=== PATIENT | female | born 1985 | race Hispanic/Latino ===

== ENCOUNTER 2021-07-28 11:08 | Emergency (ER) | payer OTHER ==
[~2021-07-28] VITALS: Ht 149.9 cm; Wt 83.9 kg
== END 2021-07-28 11:47 | disposition home or self-care (01) ==
LOC: ER 11:41
DX: O26.892 Other specified pregnancy related conditions, second trimester (principal); J02.9 Acute pharyngitis, unspecified; R05.9 Cough, unspecified; R09.89 Other specified symptoms and signs involving the circulatory and respiratory systems
CPT/HCPCS: 99283

== ENCOUNTER 2025-05-21 18:10 | Emergency (ER) | payer SELFPAY ==
[~2025-05-21] VITALS: Ht 149.9 cm; Wt 77.1 kg
[2025-05-21 18:41] VITALS: PULSE 116; RESP 17; TEMP 99
[2025-05-21] MEDS ORDERED: DOXYCYCLINE HY100 MG PO (20:35)
[2025-05-21] MEDS ORDERED: BACTRIM DS TAB1 EACH PO (20:35)
[2025-05-21 21:20] VITALS: BP 121/80; PULSE 78; RESP 16; O2SAT 100
== END 2025-05-21 21:22 | disposition home or self-care (01) ==
LOC: ER 20:21
DX: L02.211 Cutaneous abscess of abdominal wall (principal)
CPT/HCPCS: 99283